=== PATIENT | female | born 1995 | race Two or more races ===

== ENCOUNTER 2023-01-06 11:24 | Inpatient (IN) | payer OTHER ==
[~2023-01-06] VITALS: Ht 162.6 cm; Wt 73.9 kg
[2023-01-11] MEDS ORDERED: IRON18 MG PO (08:47)
[2023-01-11] MEDS ORDERED: PRENATAL TABLE1 EAC1 PO (08:47)
== END 2023-01-14 14:13 | disposition home or self-care (01) | DRG 785 ==
LOC: LDR 01-11 08:05 → OB/GYN 01-11 11:45 → SURG 01-12 10:45 → LDR 01-12 10:45 → OB/GYN 01-14 14:13
PROVIDERS: ADMIT Specialist; ATTEND Specialist
PROC: 0UB70ZZ Excision of Bilateral Fallopian Tubes, Open Approach (ICD-10-PCS; 2023-01-11)
PROC: 4A1HXCZ Monitoring of Products of Conception, Cardiac Rate, External Approach (ICD-10-PCS; 2023-01-11)
PROC: 10D00Z1 Extraction of Products of Conception, Low, Open Approach (ICD-10-PCS; principal; 2023-01-11 08:45)
DX: O34.211 Maternal care for low transverse scar from previous cesarean delivery (principal); Z30.2 Encounter for sterilization; Z3A.38 38 weeks gestation of pregnancy; Z37.0 Single live birth; Z20.822 Contact with and (suspected) exposure to COVID-19; O99.892 Other specified diseases and conditions complicating childbirth; N73.6 Female pelvic peritoneal adhesions (postinfective)